=== PATIENT | male | born 1965 | race Caucasian/White ===

== ENCOUNTER 2025-01-25 08:19 | Outpatient (CLI) | payer BC, SELFPAY ==
--- NOTE | ~2025-01-25 | MR_ITS ---
EXAMINATION: MR lumbar spine wo con DATE: 01/25/2025 08:47 INDICATION: Low back pain. Right hip pain. TECHNIQUE: Magnetic resonance imaging (MRI) of the lumbar spine was performed without intravenous con trast. Sequences included sagittal T2-weighted FSE, sagittal T2-weighted FS FSE, sagittal T1-weighted FSE, and axial T2-weighted FSE. COMPARISON: None FINDINGS: There is 4 degrees dextrocurvature of thoracolumbar spine. Vertebral body heights are jermaine l. Intervertebral disc heights are normal. The distal spinal cord signal intensity is normal. The con us medullaris is at L1. The following disc levels are specifically discussed: L1-L2: The disc does not extend beyond the endplate margin. There is mild bilateral facet joint osteo arthritis. There is no neural foraminal stenosis. There is no central canal stenosis. L2-L3: The disc does not extend beyond the endplate margin. There is moderate bilateral facet joint o steoarthritis. There is no neural foraminal stenosis. There is no central canal stenosis. L3-L4: The disc is mildly bulging. There is mild bilateral facet joint osteoarthritis. There is mild bilateral neural foraminal stenosis. There is no central canal stenosis. L4-L5: There is a right foraminal protrusion. There is mild bilateral facet joint osteoarthritis. The re is mild right neural foraminal stenosis. There is no central canal stenosis. L5-S1: There is a right foraminal protrusion. There is mild bilateral facet joint osteoarthritis. The re is mild right neural foraminal stenosis. There is no central canal stenosis. IMPRESSION: 1. Mild lumbar spondylosis. Reviewed, dictated and finalized at location [] ID [email or web address] IMPRESSION: 1. Mild lumbar spondylosis.
== END 2025-01-25 08:20 | disposition home or self-care (01) ==
PROVIDERS: PCP Chiropractor
DX: M47.896 Other spondylosis, lumbar region (principal)
CPT/HCPCS: 72148

== ENCOUNTER 2025-07-06 03:30 | Day surgery (SDC) | payer BC, SELFPAY ==
--- NOTE | 2025-07-04 12:45 | PC.NURSE ---
Report to the Outpatient Waiting Room, entrance under the green pavilion located off [facility], at time _0630_ on date _[id number]_. Planned Procedure Time: _0830_.? Time changes happen often and if your time is changed the preop area will call you the afternoon before. - You and your visitor will be asked to self-screen and do not enter if you have any COVID symptoms. Please call surgeon if you need to reschedule. - A mask is optional within the hospital at this time. Patients may have clear liquids (water, carbonated beverages, clear teas, apple juice) until 3 hours prior to surgery with a maximum of 20 ounces. - No food from midnight until time of surgery and no smoking, or chewing tobacco (or any form of nicotine). No chewing gum, candy or mints. Take only the following medications with a SIP of water on the morning of surgery: ___Metoprolol and Amiodarone____ DO NOT STOP ANY OF YOUR OTHER PRESCRIPTION MEDICATIONS PRIOR TO SURGERY EXCEPT THE FOLLOWING Hold all vitamins and supplements for 3 days per anesthesiologist. Medications to discontinue per physician Patient told not to stop Eliquis, Verified this with Racquel. Date to take last dose Please no make-up, nail dutch, hairspray, perfume, deodorant, or body powder the day of surgery.? No jewelry (including any body piercings) or valuables the day of surgery, leave them at home.? Please take a shower or bath the night before, or the morning of, surgery with an antibacterial soap.? Wear comfortable, loose fitting clothing.? - Jewelry must be removed prior to entering the operating room.? Rings and piercings that are not removed may be cut off. - The hospital will not accept responsibility for valuables.? - Please leave all valuables, including medications, at home the day of surgery. If you are going home after surgery, a licensed otr refrigerated cdl truck driver must drive you home.? - NO public transportation without another adult if you receive anesthesia. - We recommend that an adult stay with you for 24 hours following discharge. - We also recommend that you do not drive, make important decision, drink alcoholic beverages, or take any drugs that were not prescribed by your health care provider for at least 24 hours after your discharge time. Follow any additional instructions given to you from your surgeon. Telephone instructions given to __David__and asked if any additional questions and then verbalized understanding. Patient advised to call surgeon office or pre surgery nurse liaison [phone] if any additional questions.
[2025-07-04 12:54] VITALS: BMI 35.8
[2025-07-06] VITALS (9 sets, daily range): BP systolic 92–124; BP diastolic 53–99; PULSE 74–94; RESP 10–18; TEMP 36.4; O2SAT 92–96; BMI 35.2
--- NOTE | ~2025-07-06 | XR_ITS ---
XR fluoroscopy no charge Indication: Left retrograde pyelogram TECHNIQUE: Fluoroscopy used during Left retrograde pyelogram performed by [Víctor Zamorano MD ] on 07/06/2025. 11 seconds of fluoroscopy time with 3 fluoroscopic images captured. FINDINGS: Correlate with procedure note. IMPRESSION: Fluoroscopy used during Left retrograde pyelogram. Reviewed, dictated and finalized at location A.
--- OUTSIDE RECORDS SUMMARY | 2025-07-06 03:33 | XMS_ITS | Encounter Summary ---
Author Organization 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 Historical Provider Final Res ult documented in this encounter Visit Diagnoses Not on filedocumented in this encounter Care Teams Premium Service Representative Relationship Specialty Start Date End Date Benedicto Tapia MD [address] [place] [id number] PCP - General Family Medicine 04/08/19 01/06/21 Joe Gomez MD [address] [place] [address] PCP - General Allergy and Immunology 01/07/21 documented as of this encounter
--- OUTSIDE RECORDS SUMMARY | 2025-07-06 03:33 | XMS_ITS | Clinical Summary ---
Author Organization [facility] Address [facility] [place] [address] Care Team Providers Care Senior Branch Manager Name Role Phone None, Provider MD Primary Care Provider Unavaila ble Allergies Active Allergy Reactions Criticality Noted Date Comments Aspirin Other (see comment) 07/01/2025 Heart palpitation Medications HYDROcodone-acetami nophen (NORCO) 5-325 MG tabletIndications:A cute Pain < 7 Day Supply Take 1 tablet by mouth every 6 (six) hours as needed. Indications: Acute Pain < 7 Day Supply 10 tablet 5 Active ondansetron (ZOFRAN-ODT) 4 MG disintegrating tablet Take 1 tablet (4 mg total) by mouth every 8 (eight) hours as needed. 20 tablet 5 Active tamsulosin (FLOMAX) 0.4 MG Cap Take 1 capsule (0.4 mg total) by mouth daily. 30 capsule 5 Active Encounters Date Type Department Care Team Description 07/01/2025 10:35 AM CDT - 07/01/2025 2:40 PM CDT Emergency [facility] [place] [address] Darion Maharaj PA-C Urinary Symptoms Discharge Disposition: Home or Self Care (Routine Discharge) 07/01/2025 Travel from Last 3 Months Social History Tobacco Use Types Packs/Day Years Used Date Smoking Tobacco: Some Days Cigarettes Cigars Smokeless Tobacco: Never Tobacco Cessation:Ready to Q uit: Not Asked; Counseling Given: Not Answered Alcohol Use Standard Drinks/Week Comments Not Currently 0 (1 standard drink = 0.6 oz pur e alcohol) Sex and Gender Information Value Date Recorded Sex Assigned at Male 07/01/2025 1:22 PM CDT Legal Sex Male 8:09 PM CDT Gender Identity Not on file Sexual Orientation Not on file Last Filed Vital Signs Vital Sign Reading Time Taken Comments Blood Pressure 135/90 07/01/2025 1:28 PM CDT Pulse 99 07/01/2025 1:28 PM CDT Temperature 36.1 C (97 F) 07/01/2025 10:18 AM CDT Respiratory Rate 18 07/01/2025 1:28 PM CDT Oxygen Saturation 97% 07/01/2025 1:28 PM CDT Inhaled Oxygen Concentration - - Weight 106 kg (233 lb 11 oz) 07/01/2025 10:18 AM CDT Height 172.7 cm (5' 8) 07/01/2025 10:18 AM CDT Body Mass Index 35.53 07/01/2025 10:18 AM CDT Plan of Treatment Health Maintenance Due Date Last Done Comments Colorectal Cancer Screening Colonoscopy (10 Years) 1964 Annual Physical 1967 Hepatitis C 1982 DTaP, Tdap and Td Vaccines ( 1 - Tdap) 1983 Pneumococcal Vaccine: 50+ Ye ars (1 of 2 - PCV) 1983 Zoster Vaccines (1 of 2) 2014 COVID-19 Vaccine (2023-2 5 season) 2024 RSV Immunization or 60+ Years (1 - 1-dose 75+ series) 2039 Meningococcal B Vaccine Aged Out No l onger eligible based on patient's age to complete this topic Meningococcal Vaccine Aged Out No maida berenice eligible based on patient's age to complete this topic RSV Immunizations Under 20 Months Aged Out No longer eligible based on patient's age to complete this topic Procedures Procedure Name Priority Date/Time Associated Diagnosis Comments COMPREHENSIVE METABOLIC PANEL STAT 07/01/2025 1:12 PM CDT CBC W/DIFF AUTOMATED STAT 07/01/2025 1:[address] ABD+PEL WO CON STAT 07/01/2025 12: 10 PM CDT HC URINALYSIS AUTO W/O MICRO STAT 07/01/2025 10:45 AM CDT from Last 3 Months Results * (ABNORMAL) COMPREHENSIVE METABOLIC PANEL (07/01/2025 1:12 PM CDT) GLUCOSE 89 70 - 99 MG/DL 07/01/2025 1:51 PM CDT [facility] BUN 16 7 - 18 MG/DL 07/01/2025 1:51 PM CDT [facility] CREATININE S/P/B 1.13 0.7 - 1.3 MG/DL 07/01/2025 1:51 PM CDT [facility] SODIUM S/P/B 138 136 - 145 MMOL/L 07/01/2025 1:51 PM CDT [facility] POTASSIUM S/P/B 4.2 3.5 - 5.1 MMOL/L 07/01/2025 1:51 PM CDT [facility] CHLORIDE S/P/B 105 97 - 115 MMOL/L 07/01/2025 1:51 PM CDT [facility] CO2 27.7 21 - 32 MMOL/L 07/01/2025 1:51 PM CDT [facility] CALCIUM S/P/B 9.7 8.5 - 10.1 MG/DL 07/01/2025 1:51 PM CDT [facility] BILIRUBIN TOTAL S/P/B 0.9 0.2 - 1.2 MG/DL 07/01/2025 1:51 PM CDT [facility] Comment: THIS ASSAY IS NOT RECOMMENDED FOR PATIENTS UNDERGOING TREATMENT WITH ELTROMBOPAG DUE TO THE POTENTIAL FOR FALSELY ELEVATED RESULTS. TOTAL PROTEIN S/P/B 8.2 6.4 - 8.2 G/DL 07/01/2025 1:51 PM CDT [facility] ALBUMIN S/P/B 3.9 3.4 - 5.0 G/DL 07/01/2025 1:51 PM CDT [facility] AST 26 15 - 37 U/L 07/01/2025 1:51 PM CDT [facility] ALT 37 16 - 60 U/L 07/01/2025 1:51 PM CDT [facility] ALKALINE PHOSPHATASE S/P/B 58 50 - 136 U/L 07/01/2025 1:51 PM CDT [facility] ANION GAP 5.3 2 - 10 MMOL/L 07/01/2025 1:51 PM CDT [facility] BUN CREATININE RATIO 14.2 6 - 26 07/01/2025 1:51 PM CDT [facility] A/G RATIO 0.9(L) 1.0 - 2.0 RATIO 07/01/2025 1:51 PM CDT [facility] GFR ESTIMATE 74(L) >90 ML/MIN/1.7 3 M2 07/01/2025 1:51 PM CDT [facility] Comment: NOTE: eGFR is not calculated for patients <18 years of age or gender unknown. This is an estimated GFR calculation using the new CKD EPI creatinine equation without race and so does not require a correction factor for race. This estimated GFR should not be used for calculating drug doses. 07/01/2025 1:12 PM CDT Darion Maharaj PA-C LABORATORY Final Resul t [facility] [address] [place] [address], [place] [phone] * (ABNORMAL) CBC W/DIFF AUTOMATED (07/01/2025 1:12 PM CDT) WBC 8.51 4.5 - 11.0 x10'3/uL 07/01/2025 1:50 PM CDT [facility] RBC 5.90 4.70 - 6.10 x10'6/uL 07/01/2025 1:50 PM CDT [facility] HGB 18.3(H) 14.0 - 18.0 G/DL 07/01/2025 1:50 PM CDT [facility] HCT 53.8 43.0 - 54.0 % 07/01/2025 1:50 PM CDT [facility] MCV 91.2 80.0 - 94.0 FL 07/01/2025 1:50 PM CDT [facility] MCH 31.0 27.0 - 31.0 PG 07/01/2025 1:50 PM CDT [facility] MCHC 34.0 32.0 - 36.0 G/DL 07/01/2025 1:50 PM CDT [facility] RDW 13.0 11.5 - 14.5 % 07/01/2025 1:50 PM CDT [facility] PLT 258 130 - 400 x10'3/uL 07/01/2025 1:50 PM CDT [facility] MPV 10.9 9.3 - 12.2 FL 07/01/2025 1:50 PM CDT [facility] DIFFERENTIAL TYPE AUTOMATED DIFFERENTIAL 07/01/2025 1:50 PM CDT [facility] NEUTROPHILS % 53.2 % 07/01/2025 1:50 PM CDT [facility] LYMPHOCYTES % 35.1 % 07/01/2025 1:50 PM CDT [facility] MONOCYTES % 10.0 % 07/01/2025 1:50 PM CDT [facility] EOSINOPHILS 0.8 % 07/01/2025 1:50 PM CDT [facility] BASOPHILS 0.8 % 07/01/2025 1:50 PM CDT [facility] IMMATURE GRANS % 0.1 % 07/01/20 25 1:50 PM CDT [facility] ABS. NEUTROPHILS 4.52 1.80 - 7.70 x10'3/uL 07/01/2025 1:50 PM CDT [facility] ABS. LYMPHOCYTES 2.99 1.00 - 4.80 x10'3/uL 07/01/2025 1:50 PM CDT [facility] ABS. MONOCYTES 0.85(H) 0.30 - 0.82 x10'3/uL 07/01/2025 1:50 PM CDT [facility] ABS. EOSINOPHILS 0.07 0.04 - 0.54 x10'3/uL 07/01/2025 1:50 PM CDT [facility] ABS. BASOPHILS 0.07 0.01 - 0.08 x10'3/uL 07/01/2025 1:50 PM CDT [facility] ABS. IMMATURE GRANULOCYTES 0.01 0.00 - 0.49 x10'3/uL 07/01/2025 1:50 PM CDT [facility] 07/01/2025 1:12 PM CDT Darion Maharaj PA-C LABORATORY Final Resul t [facility] [address] [place] [address], [place] [phone] * CT ABD+PEL WO CON (07/01/2025 12:10 PM CDT) Anatomical Region Laterality Modality Abdomen Computed Tomogra phy 07/01/2025 12:1 4 PM CDT Impressions 07/01/2025 12:29 PM CDT IMPRESSION: 1. Moderate left-sided hydronephrosis and hydroureter due to distal left ureteral calculus measuring 5.3 x 8.8 mm. 2. Punctate nonobstructing calculi lower pole left kidney and mid right kidney. 3. Difficult to characterize possible cysts within the superior and inferior right kidney. Follow-up with outpatient renal ultrasound. 4. Colonic diverticuli without diverticulitis. 5. Small fat-containing umbilical hernia. Adjacent small bowel loop without incarceration. 6. Small bilateral fat-containing inguinal hernias. Referred By: Interpreted By: Philip Amos MD, 07/01/2025 12:14 PM Narrative 07/01/2025 12:29 PM CDT [address] [address] EXAMINATION: CT Abdomen and Pelvis without contrast EXAM DATE/TIME: 07/01/2025 11:50 AM REASON FOR EXAM: dysuria, hematuria Symptoms for 3 days COMPARISON: None TECHNIQUE: Axial imaging of the abdomen and pelvis was obtained without intravenous contrast. A dose lowering technique was used for this procedure, which may include, but is not limited to, dose reduction technique, automated exposure control, iterative reconstruction, ALARA (As Low As Reasonably Achievable), or Image Gently techniques. FINDINGS: Abdomen: Moderate left-sided hydronephrosis and hydroureter due to distal left ureteral calculus. Just proximal to the left UVJ.. Measures 5.3 mm in transverse dimension. Cc dimension of 8.8 mm on image 63 of series 5. Punctate nonobstructing calculi lower pole left kidney and mid right kidney. Difficult to characterize possible cyst within the superior and inferior right kidney. Follow-up with outpatient renal ultrasound. Mild edematous appearance to the left kidney with mild perinephric fatty infiltration. Stomach and duodenum are unremarkable. Spleen is unremarkable. Cholecystectomy Pancreas grossly unremarkable. Hepatic parenchyma are within normal limits with no evidence of intrahepatic biliary dilatation or mass within the limitations of a noncontrast study. 2 small to characterize probable cyst within both lobes of the liver. No mesenteric lymphadenopathy or evidence of small bowel obstruction. No free fluid or free air. No evidence of retroperitoneal lymphadenopathy. No evidence of an abdominal aortic aneurysm. Scattered fecal material and gas throughout the colon without evidence of mass or dilatation. Colonic diverticuli without diverticulitis Appendix not inflamed. Small fat-containing umbilical hernia. Adjacent small bowel loop without incarceration. Pelvis: Urinary bladder and rectum are unremarkable.. Small bilateral fat-containing inguinal hernias. On bone windows, no evidence of suspicious skeletal lesion or acute compression fracture deformity. Limited evaluation of the lower thorax demonstrates no acute abnormality. Procedure Note Philip Amos MD - 07/01/2025 [facility] [address] [place], [place] [address] EXAMINATION: CT Abdomen and Pelvis without contrast EXAM DATE/TIME: 07/01/2025 11:50 AM REASON FOR EXAM: dysuria, hematuria Symptoms for 3 days COMPARISON: None TECHNIQUE: Axial imaging of the abdomen and pelvis was obtained withoutintravenous contrast. A dose lowering technique was used for this procedure, which may include,but is not limited to, dose reduction technique, automated exposurecontrol, iterative reconstruction, ALARA (As Low As ReasonablyAchievable), or Image Gently techniques. FINDINGS: Abdomen: Moderate left-sided hydronephrosis and hydroureter due to distalleft ureteral calculus. Just proximal to the left UVJ.. Measures 5.3 mmin transverse dimension. Cc dimension of 8.8 mm on image 63 of series5. Punctate nonobstructing calculi lower pole left kidney and mid rightkidney. Difficult to characterize possible cyst within the superior and inferiorright kidney. Follow-up with outpatient renal ultrasound. Mild edematous appearance to the left kidney with mild perinephric fattyinfiltration. Stomach and duodenum are unremarkable. Spleen is unremarkable. Cholecystectomy Pancreas grossly unremarkable. Hepatic parenchyma are within normal limits with no evidence ofintrahepatic biliary dilatation or mass within the limitations of anoncontrast study. 2 small to characterize probable cyst within bothlobes of the liver. No mesenteric lymphadenopathy or evidence of small bowel obstruction. Nofree fluid or free air. No evidence of retroperitoneal lymphadenopathy. No evidence of an abdominal aortic aneurysm. Scattered fecal material and gas throughout the colon without evidence ofmass or dilatation. Colonic diverticuli without diverticulitis Appendix not inflamed. Small fat-containing umbilical hernia. Adjacent small bowel loop withoutincarceration. Pelvis: Urinary bladder and rectum are unremarkable.. Small bilateralfat- containing inguinal hernias. On bone windows, no evidence of suspicious skeletal lesion or acutecompression fracture deformity. Limited evaluation of the lower thorax demonstrates no acuteabnormality. IMPRESSION: 1. Moderate left-sided hydronephrosis and hydroureter due to distal leftureteral calculus measuring 5.3 x 8.8 mm. 2. Punctate nonobstructing calculi lower pole left kidney and mid rightkidney. 3. Difficult to characterize possible cysts within the superior andinferior right kidney. Follow-up with outpatient renal ultrasound. 4. Colonic diverticuli without diverticulitis. 5. Small fat-containing umbilical hernia. Adjacent small bowel loopwithout incarceration. 6. Small bilateral fat-containing inguinal hernias. Referred By: Interpreted By: Philip Amos MD, 07/01/2025 12:14 PM Darion Maharaj PA-C CT Final Resul t * (ABNORMAL) URINALYSIS (07/01/2025 10:45 AM CDT) SPECIMEN TYPE URINE CLEAN CATCH 07/01/2025 10:49 AM CDT [facility] COLOR (U) YELLOW 07/01/2025 11:17 AM CDT [facility] TRANSPARENCY CLEAR 07/01/2025 11:17 AM CDT [facility] SPECIFIC GRAVITY (U) 1.021 1.001 - 1.030 07/01/2025 11:17 AM CDT [facility] U PH 5.5 5.0 - 9.0 07/01/2025 11:17 AM CDT [facility] LEUKOCYTES (U) NEGATIVE NEGATIVE 07/01/2025 11:17 AM CDT [facility] NITRITES NEGATIVE NEGATIVE 07/01/2025 11:17 AM CDT [facility] PROTEIN RANDOM (U) NEGATIVE <30 MG/DL 07/01/2025 11:17 AM CDT [facility] GLUCOSE (U) NORMAL NORMAL MG/DL 07/01/2025 11:17 AM CDT [facility] KETONES MG/DL (U) NEGATIVE NEGATIVE MG/DL 07/01/2025 11:17 AM CDT [facility] UROBILINOGEN NORMAL NORMAL MG/DL 07/01/2025 11:17 AM CDT [facility] BILIRUBIN (U) NEGATIVE NEGATIVE MG/DL 07/01/2025 11:17 AM CDT [facility] BLOOD (U) 3+(A) NEGATIVE 07/01/2025 11:17 AM CDT [facility] MUCUS RARE /LPF 07/01/2025 11:17 AM CDT [facility] WBC/HPF 3 <6 /HPF 07/01/2025 11:17 AM CDT [facility] RBC/HPF >100(H) <6 /HPF 07/01/2025 11:17 AM CDT [facility] URINE SPECIMEN OBTAINED BY CLEAN CATCH PROCEDURE / Unknown 07/01/2025 10:45 AM CDT Darion Maharaj PA-C URINE ORDERABLES Final Resu lt [facility] [address] [place] [address], from Last 3 Months Insurance [facility] Care Teams Senior Branch Manager Relationship Specialty Start Date End Date None, Provider, MD PCP - General UNKNOWN PHYSICIAN SPECIALTY 07/01/25
--- OUTSIDE RECORDS SUMMARY | 2025-07-06 03:33 | XMS_ITS | Clinical Summary ---
Author Organization [facility] Address [address] [place] [address] Care Team Providers Care Chute Feeder Name Role Phone Joe Gomez MD Primary Care Provider [phone] Allergies Active Allergy Reactions Criticality Noted Date Comments Aspirin Medications multivit-min/iro n/folic acid/K (ADULTS MULTIVITAMIN ORAL) Take 1 tablet by mouth daily Active spironolactone (ALDACTONE) 25 mg tablet TAKE 1 TABLET (25 MG TOTAL) BY MOUTH DAILY 90 tablet 3 2 Active Additional Information Patient not taking.Reported on 05/10/2025 testosterone micronized, bulk, 100 % powder 1 3 Active metoprolol tartrate (LOPRESSOR) 25 mg immediate release tabletIndication s:Atrial Arrhythmia Take 1 tablet (25 mg total) by mouth 3 (three) times a day 90 tablet 3 3 Active Additional Information Patient not taking.Reported on 05/10/2025 albuterol 2.5 mg /3 mL (0.083 %) nebulizer solutionIndicati ons:History of wheezing Take 3 mL (2.5 mg total) by nebulization 4 (four) times a day as needed for wheezing or shortness of breath for up to 7 days 3 mL 5 Active Additional Information Patient not taking.Reported on 05/10/2025 benzonatate (TESSALON) 200 mg capsuleIndicatio ns:Flu-like symptoms Take 1 capsule (200 mg total) by mouth 3 (three) times a day as needed for cough keep tessalon out of reach of children, especially children under the age of 10, due to possible serious risk such as if ingested by children under the age of 10. 30 capsule 5 Active Additional Information Patient not taking.Reported on 05/10/2025 Active Problems Problem Noted Date Diagnosed Date Intermittent atrial fibrillation 05/28/2016 Assessment & Plan (07/08/2021 8:45 AM CDT): Apparently the Norpace is not being managed factor anymore. His atrial fibrillation burden is much less with the change of his job and reduction in the stress level. He can go without trying any medication for the time being. I gave him a prescription for Flecainide 50 mg p.o. b.i.d. as a backup. Atrial fibrillation ablation has been discussed but he has been reluctant. Has been encouraged to lose weight. The EKG today shows normal sinus rhythm, incomplete right bundle branch block, left axis deviation, ST-T changes. Assessment & Plan (01/07/2021 8:48 AM [employer]): Norma. Ablation of the intermittent atrial fibrillation has been discussed and suggested. Has changed his job and the new job is much less stressful. Has lost about 25 lb of weight. On 1 episode of atrial fibrillation in the last 1 year. EKG today shows normal sinus rhythm, left axis deviation, ST-T changes. Compared to a 02/17/2020, the ST-T changes are slightly increased. No chest pain or dyspnea. Will check the serum potassium level. Assessment & Plan (02/17/2020 12:17 PM CDT): Norma. Ablation of the intermittent atrial fibrillation has been suggested. So far , he has not considered it. EKG today shows normal sinus rhythm rate 60, left axis deviation, T-wave changes, QTC 438. Assessment & Plan (04/11/2019 12:00 PM CDT): On Norpace 200 mg p.o. B.i.d. most of the episodes of atrial fibrillation occur at night. Waking him up from sleep. Has been intact with Dr. Hoang was at [facility] . The Norpace CR is very expensive. I told him to find if he can get it from some pharmacy in [place] which may be cheaper. I told him to consider ablation of the atrial fibrillation. But he is reluctant. His brother had serious complication while undergoing the atrial fibrillation ablation. EKG today shows normal sinus rhythm, left axis deviation, notched T-waves. QTC 422. Sleep apnea 05/28/2016 Overview (04/06/2019): On CPAP. Assessment & Plan (07/04/2021 7:50 PM CDT): On CPAP. Assessment & Plan (01/04/2021 12:18 PM [employer]): On CPAP. Assessment & Plan (02/17/2020 7:34 AM CDT): On CPAP. Assessment & Plan (04/08/2019 5:07 PM CDT): On CPAP. Hypertensive heart disease 05/28/2016 Assessment & Plan (07/08/2021 8:43 AM CDT): Salt restriction. Spironolactone. SMA 7 was ordered but not done. Ordered again. Blood pressure 148/84. I retook the blood pressure. 140/80. Assessment & Plan (01/07/2021 8:47 AM [employer]): Salt restriction. Spironolactone. Initial blood pressure 152/82. I retook the blood pressure it was 140/80. Continue the salt restriction and the spironolactone. Will check the SMA 7 in the next few days. Assessment & Plan (02/17/2020 12:16 PM CDT): Blood pressure 160/80. Salt restriction. He was on Aldactone at 1 time which he had discontinued. Restart Aldactone 25 mg p.o. daily. SMA 7 and 4 weeks. Return 6 weeks an will adjust the medication further if necessary. Assessment & Plan (04/11/2019 11:59 AM CDT): Blood pressure 128/84. Continue the current regimen. Continue the salt restriction. Hyperlipidemia 05/28/2016 Overview (04/06/2019): Strong family history for coronary artery disease Assessment & Plan (07/04/2021 7:46 PM CDT): Strong family history for coronary artery disease. Not on a statin at this time, because of the low benefit ratio.. Assessment & Plan (01/04/2021 12:17 PM [employer]): Strong family history for coronary artery disease. Not on a statin so far because of the low benefit ratio. Assessment & Plan (02/17/2020 7:37 AM CDT): Strong family history for coronary artery disease. Not on a statin so far because of the low benefit ratio. Assessment & Plan (04/11/2019 11:59 AM CDT): Has not been on statins because the low benefit ratio.. He does have a strong family history for coronary artery disease. Pre-syncope 05/28/2016 Assessment & Plan (07/04/2021 7:50 PM CDT): No recurrence. Assessment & Plan (01/04/2021 12:18 PM [employer]): No recurrence. Assessment & Plan (02/17/2020 7:34 AM CDT): No recurrence. Assessment & Plan (04/08/2019 5:07 PM CDT): No recurrence. Precordial chest pain 05/28/2016 Overview (04/06/2019): Negative stress echo 06/25/2015. Assessment & Plan (07/04/2021 7:49 PM CDT): Negative stress echo 06/25/2015. Assessment & Plan (01/04/2021 12:18 PM [employer]): Negative stress echo 06/23/2015. Assessment & Plan (02/17/2020 7:35 AM CDT): Negative stress echo 06/23/2015. Assessment & Plan (04/08/2019 5:08 PM CDT): Negative stress echo 06/25/2015. Encounters Date Type Department Care Team Description 05/10/2025 12:45 PM CDT Office Visit [facility] [address] [place] [address] [phone] Sultan Arabella Cleveland MD Intermittent atrial fibrillation (HCC) (Primary Dx) 04/19/2025 Orders Only [facility] [address] [place] [address] [phone] ProviderLuz Maria MD 04/19/2025 Telephone [facility] [address] [place] [phone] Sultan Arabella Cleveland MD DROPOFF (Lab ingrid results) from Last 3 Months Surgical History Surgery Date Site/Laterality Comments APPENDECTOMY 11/30/2000 - 11/29/2001 VASECTOMY 11/30/1989 - 11/29/1990 TONSILLECTOMY 11/30/1982 - 11/29/1983 Medical History Medical History Date Comments Premature beats A-fib (HCC) HLD (hyperlipidemia) PVC's (premature ventricular contractions) Social History Tobacco Use Types Packs/Day Years Used Date Smoking Tobacco: Never Smokeless Tobacco: Never Tobacco Cessation:Counseling Given: No Alcohol Use Standard Drinks/Week Comments Never 0 (1 standard drink = 0.6 oz pur e alcohol) AUDIT-C Answer Date Recorded Q1: How often do you have a drink containing alc ohol? Never 01/07/2021 Average Number of Drinks Not on file 021 Frequency of Binge Drinking Not on file 06/2021 Sex and Gender Information Value Date Recorded Sex Assigned at Not on file Legal Sex Male 12:53 AM [employer] Gender Identity Not on file Sexual Orientation Not on file Obstetrics History Last Filed Vital Signs Vital Sign Reading Time Taken Comments Blood Pressure 132/84 05/10/2025 12:41 PM CDT Pulse 82 05/10/2025 12:41 PM CDT Temperature 37.6 C (99.7 F) 12/27/2024 8:35 AM [employer] Respiratory Rate 18 12/27/2024 8:35 AM [employer] Oxygen Saturation 94% 05/10/2025 12:41 PM CDT Inhaled Oxygen Concentration - - Weight 108.9 kg (240 lb) 05/10/2025 12:41 PM CDT Height 170.2 cm (5' 7.01) 12/27/2024 8:35 AM CS T Body Mass Index 37.58 12/27/2024 8:35 AM [employer] Plan of Treatment Health Maintenance Due Date Last Done Comments Colon Cancer Screening-Colonoscopy 1964 Depression Screening 1964 Hepatitis C Screening 1964 Prostate Cancer Screening-PSA 1964 DTaP/Tdap/Td Vaccine (1 - Tdap) 1975 Hepatitis B Screening 1982 Regular Well Visit/Exam 18-64 1982 Zoster Vaccine (1 of 2) 2014 Influenza Vaccine (#1) 2025 Pneumococcal vaccine <65 Aged Out No longer eligible based on patient's age to complete this topic Procedures Procedure Name Priority Date/Time Associated Diagnosis Comments ECG 12-LEAD Routine 05/10/2025 12:45 PM CDT Intermittent atrial fibrillation (HCC) SCAN - LABS Routine 04/19/2025 4:30 PM CDT SCAN - LABS Routine 04/19/2025 4:29 PM CDT from Last 3 Months Results * ECG 12 lead (05/10/2025 12:45 PM CDT) Sultan Arabella Cleveland MD ECG ORDERABLES Final Result * SCAN - LABS (04/19/2025 4:30 PM CDT) Historical Provider Final Res ult * SCAN - LABS (04/19/2025 4:29 PM CDT) Historical Provider Final Res ult from Last 3 Months Insurance Megathread ACCESS OOS Megathread ACCESS OOS Care Teams Chute Feeder Relationship Specialty Start Date End Date Joe Gomez MD [address] [place] [address] PCP - General Allergy and Immunology 01/07/21
--- OUTSIDE RECORDS SUMMARY | 2025-07-06 03:33 | XMS_ITS | Clinical Summary ---
Author Organization [facility] Address [address] [facility] [place] [address] Phone Care Team Providers Care And Drying Supervisor Cooking Casing Name Role Phone Unavailable Primary Care Provider Unavailabl e Allergies Active Allergy Reactions Criticality Noted Date Comments Aspirin Palpitations Low 05/16/2025 Medications spironolactone (ALDACTONE) 25 mg tablet Take 25 mg by mouth daily. 06/25/2022 Active testosterone micronized, bulk, 100 % Powder 08/27/2023 Active metoprolol tartrate (LOPRESSOR) 25 mg tablet Take 1 Tablet (25 mg) by mouth daily. 90 Tablet 2 05/16/2025 Active apixaban (ELIQUIS) 5 mg tablet Take 1 Tablet (5 mg) by mouth 2 times daily. 60 Tablet 2 05/16/2025 Active losartan (COZAAR) 25 mg tablet Take 1 Tablet (25 mg) by mouth daily. 100 Tablet 3 06/05/2025 Active dapagliflozin propanediol (Farxiga) 10 mg Tablet Take 1 Tablet (10 mg) by mouth daily. 90 Tablet 3 06/06/2025 Active amiodarone (CORDARONE) 200 mg tabletIndications :Paroxysmal atrial fibrillation (CMS/HCC) Take 1 Tablet (200 mg) by mouth 2 times daily for 14 days, THEN 1 Tablet (200 mg) daily. 118 Tablet 06/07/2025 09/19/20 25 Active atorvastatin (LIPITOR) 10 mg tablet Take 1 Tablet (10 mg) by mouth daily at bedtime. 90 Tablet 2 06/16/2025 Active Active Problems Problem Noted Date Diagnosed Date Diastolic dysfunction 05/17/2025 Paroxysmal atrial fibrillation 05/16/2025 Benign hypertension 05/16/2025 Encounters Date Type Department Care Team Description 06/29/2025 Results Follow-Up [facility]ART AND VASCULAR EP AT [address] [place] [phone] Klarissa Cook, KEYLA ECHO TRANSESOPHAGEAL WITH CARDIOVERSION 06/28/2025 9:20 AM CDT Anesthesia Event [facility] Non Invasive Cardiology [address] [place] [phone] Greg Luque MD 06/28/2025 7:50 AM CDT - 06/28/2025 11:59 PM CDT Hospital Encounter [facility] Non Invasive Cardiology [address] [place] [phone] Nelly Cortez MD Forstot, Robert M, MD Discharge Disposition: Home or Self Care 06/26/2025 Telephone [facility] EP AT [address] [place] [phone] Nelly Cortez MD CV/SR/beth 06/16/2025 8:00 AM CDT - 06/16/2025 8:46 AM CDT Surgery [facility] Train Inspector [address] [place] [phone] Víctor Fernandez MD Left heart cath 06/16/2025 6:00 AM CDT - 06/16/2025 11:40 AM CDT Hospital Encounter [facility] Interventional Care [address] [place] [phone] Víctor Fernandez MD Decreased cardiac ejection fraction Discharge Disposition: Home or Self Care 06/16/2025 Telephone [facility] EP AT [address] [place] [phone] Nelly Cortez MD scheduling CV 06/14/2025 Results Follow-Up [facility] Heart and Vascular At [address] [place] [phone] Jo-Ann Hitchcock, RN CBC WITH DIFFERENTIAL, BASIC METABOLIC PANEL, PROTIME-INR 06/07/2025 9:00 AM CDT Office Visit [facility] EP AT [address] [place] [address] Víctor Fernandez MD Nordsieck, Eric James, MD Paroxysmal atrial fibrillation (CMS/HCC) (Primary Dx); Chronic systolic heart failure (CMS/HCC); Essential hypertension 06/07/2025 Telephone [facility] EP AT [address] [place] [address] Nelly Cortez MD Confirmed ablation date 06/06/2025 Telephone [facility] Heart [facility] Vascular At [address] [place] [phone] Víctor Fernandez MD PA 06/06/2025 Refill [facility] Vascular At [address] [place] [address] Víctor Fernandez MD 06/05/2025 Refill [facility] Heart [facility] Vascular At [address] [place] [address] Víctor Fernandez MD 05/30/2025 Prep for Surgery [facility] Vascular At [address] [place] [address] Víctor Fernandez MD Decreased cardiac ejection fraction (Primary Dx); Abnormal echocardiogram; Palpitations; Dyspnea, unspecified type 05/25/2025 7:57 AM CDT Anesthesia Event [facility] Non Invasive Cardiology [address] [place] [phone] Jeffy Carranza DO 05/25/2025 7:05 AM CDT - 05/25/2025 11:59 PM CDT Hospital Encounter [facility] Non Invasive Cardiology [address] [place] [phone] Víctor Fernandez MD Landolt, Luke Philip, DO Discharge Disposition: Home or Self Care 05/23/2025 External Device Data STL ABSTRACTION Provider, Abstract 05/23/2025 External Device Data STL ABSTRACTION Provider, Abstract 05/23/2025 External Device Data STL ABSTRACTION Provider, Abstract 05/23/2025 Results Follow-Up [facility] Heart [facility] Vascular At [address] [place] [address] Mary Jo Alas RN BASIC METABOLIC PANEL, ECHO TRANSESOPHAGEAL WITH CARDIOVERSION 05/16/2025 2:00 PM CDT Office Visit [facility] Heart [facility] Vascular At [address] [place] [address] Víctor Fernandez MD Paroxysmal atrial fibrillation (CMS/HCC) (Primary Dx); Benign hypertension; Diastolic dysfunction 05/16/2025 Telephone [facility] Heart [facility] Vascular At [address] [place] [address] Víctor Fernandez MD needs evgeny cv from Last 3 Months Family History Medical History Relation Name Comments Heart Disease Father Stroke Maternal Grandfather Relation Name Status Comments Father Maternal Grandfather Social History Tobacco Use Types Packs/Day Years Used Date Smoking Tobacco: Never Smokeless Tobacco: Never Tobacco Cessation:Counseling Given: Not Answered Alcohol Use Standard Drinks/Week Comments Not Currently 0 (1 standard drink = 0.6 oz pur e alcohol) Sex and Gender Information Value Date Recorded Sex Assigned at Male 05/09/2025 2:54 PM CDT Legal Sex Male 4:21 PM CDT Gender Identity Male 05/09/2025 2:54 PM CDT Sexual Orientation Straight 05/09/2025 2: 54 PM CDT Last Filed Vital Signs Vital Sign Reading Time Taken Comments Blood Pressure 129/67 06/28/2025 10:18 AM CDT Pulse 82 06/16/2025 11:00 AM CDT Temperature 36.9 C (98.4 F) 06/16/2025 7:08 AM CDT Respiratory Rate 12 06/28/2025 10:18 AM CDT Oxygen Saturation 95% 06/28/2025 10:18 AM CDT Inhaled Oxygen Concentration - - Weight 109.3 kg (241 lb) 06/16/2025 7:08 AM CDT Height 172.7 cm (5' 8) 06/16/2025 7:08 AM CDT Body Mass Index 36.64 06/16/2025 7:08 AM CDT Plan of Treatment Upcoming Encounters Date Type Department Care Team (Late st Contact Info) Description 08/07/2025 11:15 AM CDT Office Visit [facility] EP AT [address] [place] [address] Dalila Salas NP [address] [place] [address] [address] [place] [phone] 10/16/2025 8:00 AM SUPPLIER DEVELOPMENT MANAGER Office Visit [facility] EP AT [address] [place] [address] Dalila Salas NP [address] [place] [address] [address] [place] [address] 11/16/2025 11:30 AM SUPPLIER DEVELOPMENT MANAGER Office Visit [facility] Heart and Vascular At [address] [place] [address] Víctor Fernandez MD [address] [place] [address] [address] [place] [address] Health Maintenance Due Date Last Done Comments Pre-Diabetes and Diabetes Screening 1965 DTAP/TDAP/TD VACCINES (1 - Tdap) 1983 COLORECTAL SCREENING 2009 Colorectal Cancer Screening 2009 FIT-DNA Q 3 years 2009 FIT/FOBT Q 1 year 2009 Flex Sig/CT Colonography Q 5 years 2009 ZOSTER VACCINE (1 of 2) 2014 RSV VACCINE (60+ or ) (1 - Risk 60-74 years 1-dose series) 2024 INFLUENZA VACCINE (#1) 2025 HEPATITIS B VACCINES Aged Out No long er eligible based on patient's age to complete this topic Procedures Procedure Name Priority Date/Time Associated Diagnosis Comments ECHO TRANSESOPHAGEAL WITH CARDIOVERSION Routine 06/28/2025 10:01 AM CDT Paroxysmal atrial fibrillation (CMS/HCC) EKG 12-LEAD Routine 06/28/2025 9:42 AM CDT TELEMETRY REPORT 06/19/2025 1:30 PM CDT TELEMETRY REPORT 06/19/2025 11:1 2 AM CDT LEFT HEART CATH Routine 06/16/2025 8:43 AM CDT Decreased cardiac ejection fraction Dyspnea, unspecified type Abnormal echocardiogram Palpitations PROTIME-INR Routine 06/13/2025 8:34 AM CDT Preop testing Abnormal coagulation profile Abnormal laboratory test BASIC METABOLIC PANEL Routine 06/13/2025 8:34 AM CDT Preop testing Abnormal coagulation profile Abnormal laboratory test CBC WITH DIFFERENTIAL Routine 06/13/2025 8:34 AM CDT Preop testing Abnormal coagulation profile Abnormal laboratory test ECHO TRANSESOPHAGEAL WITH CARDIOVERSION Routine 05/25/2025 9:12 AM CDT Paroxysmal atrial fibrillation (CMS/HCC) EKG 12-LEAD Routine 05/25/2025 8:32 AM CDT BASIC METABOLIC PANEL Routine 05/22/2025 7:50 AM CDT Paroxysmal atrial fibrillation (CMS/HCC) PA ECG ROUTINE ECG W/LEAST 12 LDS W/I&R Routine 05/16/2025 2:51 PM CDT Paroxysmal atrial fibrillation (CMS/HCC) from Last 3 Months Results * ECHO TRANSESOPHAGEAL WITH CARDIOVERSION (06/28/2025 10:01 AM CDT) Only the most recent of2 resultswithin the time period is included. EJECTION FRACTION 53 INTERFACE SYSTEM 06/28/2025 9:17 AM CDT Narrative INTERFACE SYSTEM - 06/28/2025 10:12 AM CDT [address] [place] [address] [email or web address] Transesophageal Echocardiogram with Cardioversion Patient: Rashad Ramos Study ID: ECHO QIANA Gender: M : 1965 Age: 59 Race: RIGO Height 172.7cm Study Date: 06/28/2025 Weight: 109.3kg Access. #: [id number] BP: *Referring Physician:* Nelly Cortez Eric James *Ordering Physician:* Nelly Cortez equipment processor: Nurse: Indications: Atrial fibrillation. STUDY CONCLUSIONS: SUMMARY: - Left ventricle: The cavity size was normal. Wall thickness was normal. Limited 2D echocardiographic imaging, obtained post cardioversion, revealed normal wall motion with low normal systolic function, EF 50-55%. For Epic reporting: the left ventricular ejection fraction is 53% . - Right ventricle: The cavity size is normal. Systolic function is normal. - Left atrium: The atrium is dilated. No evidence of thrombus in the atrium or atrial appendage. Normal left atrial emptying velocities. - Mitral valve: Mild regurgitation. - Tricuspid valve: Mild regurgitation. - Pulmonic valve: Mild regurgitation. - Successful DC cardioversion to sinus rhythm with a single, synchronized, 300J biphasic shock. Cardiac Anatomy: LEFT VENTRICLE: The cavity size was normal. Wall thickness was normal. Limited 2D echocardiographic imaging, obtained post cardioversion, revealed normal wall motion with low normal systolic function, EF 50-55%. For Epic reporting: the left ventricular ejection fraction is 53% . AORTIC VALVE: Structurally normal valve. Trileaflet. No significant regurgitation. AORTA: The aorta was normal. MITRAL VALVE: Structurally normal valve. Mild regurgitation. LEFT ATRIUM: The atrium is dilated. No evidence of thrombus in the atrium or atrial appendage. Normal left atrial emptying velocities. ATRIAL SEPTUM: The septum is normal. The interatrial septum was hypermobile. Color Doppler shows no nrzk-aj-ymukn atrial level shunt. RIGHT VENTRICLE: The cavity size is normal. Systolic function is normal. PULMONIC VALVE: The valve appears to be grossly normal. Mild regurgitation. TRICUSPID VALVE: Structurally normal valve. Mild regurgitation. RIGHT ATRIUM: The atrium was normal in size. PERICARDIUM: There is no pericardial effusion. Measurements Left ventricle Value Ref IVS, ED, LAX (N) 1.0 cm 0.6 - 1.0 SERA, LAX (N) 4.2 cm 4.2 - 5.8 SERA/bsa, LAX (L) 1.9 cm/m^2 2.2 - 3.0 SERA, LAX chord (N) 5.6 cm 4.2 - 5.8 ESD, LAX chord (H) 4.2 cm 2.5 - 4.0 SERA/bsa, LAX chord (N) 2.6 cm/m^2 2.2 - 3.0 ESD/bsa, LAX chord (N) 1.9 cm/m^2 1.3 - 2.1 FS, LAX chord (N) 25 % 25 - 43 IVS, ED (N) 1.0 cm 0.6 - 1.0 PW, ED (H) 1.2 cm 0.6 - 1.0 EDV, 2-p (N) 131 ml 62 - 150 ESV, 2-p (H) 65 ml 21 - 61 EF, 2-p (L) 51 % 52 - 72 SV, 2-p 67 ml --------- SV/bsa, 2-p 30.1 ml/m^2 --------- Legend: (L) and (H) ibeth values outside specified reference range. (N) meraz values inside specified reference range. Procedure data: Procedure information: The patient arrived at the laboratory in a fasting state. A baseline ECG was recorded. Intravenous access was obtained. Surface ECG leads and pulse oximetric signals were monitored. Self-adhesive anterior-posterior defibrillation pads were applied. Consicous sedation was administered during cardioversion by anesthesiology staff. A transesophageal echocardiogram was performed. Topical anesthesia was obtained using viscous lidocaine. A transesophageal probe was insertedby the attending cardiologistwithout difficulty. Study completion: There were no complications. Administered medications: Propofol. Transesophageal echocardiogram with cardioversion. 2D, complete spectral Doppler, and color Doppler. Birthdate: Patient birthdate: 1965. Age: Patient is 59year(s) old. Sex: gender: male. Height: 172.7cm. 68in. Weight: 109.3kg. 241lb. Body mass index: 36.7kg/m^2. Body surface area: 2.21m^2. Study date: Study date: 06/28/2025. Study time: 09:17 AM. Prepared and Electronically Authenticated Diana Stewart [id number] Procedure Note Diana Stewart MD - 06/28/2025 [place] [address] [email or web address] Transesophageal Echocardiogram with Cardioversion Patient: Rashad Ramos Study ID: ECHO QIANA Gender: M : 1965 Age: 59 Race: [facility] Height 172.7cm Study Date: 06/28/2025 Weight: 109.3kg Access. #: [id number] BP: *Referring Physician:Nelly Flwoer Eric James *Ordering Physician:Nelly Flower equipment processor: Nurse: Indications: Atrial fibrillation. STUDY CONCLUSIONS: SUMMARY: - Left ventricle: The cavity size was normal. Wall thickness was normal. Limited 2D echocardiographic imaging, obtained post cardioversion,revealed normal wall motion with low normal systolic function, EF 50-55%. ForEpic reporting: the left ventricular ejection fraction is 53% . - Right ventricle: The cavity size is normal. Systolic function isnormal. - Left atrium: The atrium is dilated. No evidence of thrombus in theatrium or atrial appendage. Normal left atrial emptying velocities. - Mitral valve: Mild regurgitation. - Tricuspid valve: Mild regurgitation. - Pulmonic valve: Mild regurgitation. - Successful DC cardioversion to sinus rhythm with a single,synchronized, 300J biphasic shock. Cardiac Anatomy: LEFT VENTRICLE: The cavity size was normal. Wall thickness was normal. Limited 2D echocardiographic imaging, obtained post cardioversion,revealed normal wall motion with low normal systolic function, EF 50-55%. ForEpic reporting: the left ventricular ejection fraction is 53% . AORTIC VALVE: Structurally normal valve. Trileaflet. No significant regurgitation. AORTA: The aorta was normal. MITRAL VALVE: Structurally normal valve. Mild regurgitation. LEFT ATRIUM: The atrium is dilated. No evidence of thrombus in theatrium or atrial appendage. Normal left atrial emptying velocities. ATRIAL SEPTUM: The septum is normal. The interatrial septum washypermobile. Color Doppler shows no zezc-oe-flapg atrial level shunt. RIGHT VENTRICLE: The cavity size is normal. Systolic function isnormal. PULMONIC VALVE: The valve appears to be grossly normal. Mild regurgitation. TRICUSPID VALVE: Structurally normal valve. Mild regurgitation. RIGHT ATRIUM: The atrium was normal in size. PERICARDIUM: There is no pericardial effusion. Measurements Left ventricle Value Ref IVS, ED, LAX (N) 1.0 cm 0.6 - 1.0 SERA, LAX (N) 4.2 cm 4.2 - 5.8 SERA/bsa, LAX (L) 1.9 cm/m^2 2.2 - 3.0 SERA, LAX chord (N) 5.6 cm 4.2 - 5.8 ESD, LAX chord (H) 4.2 cm 2.5 - 4.0 SERA/bsa, LAX chord (N) 2.6 cm/m^2 2.2 - 3.0 ESD/bsa, LAX chord (N) 1.9 cm/m^2 1.3 - 2.1 FS, LAX chord (N) 25 % 25 - 43 IVS, ED (N) 1.0 cm 0.6 - 1.0 PW, ED (H) 1.2 cm 0.6 - 1.0 EDV, 2-p (N) 131 ml 62 - 150 ESV, 2-p (H) 65 ml 21 - 61 EF, 2-p (L) 51 % 52 - 72 SV, 2-p 67 ml --------- SV/bsa, 2-p 30.1 ml/m^2 --------- Legend: (L) and (H) ibeth values outside specified reference range. (N) meraz values inside specified reference range. Procedure data: Procedure information: The patient arrived at the laboratory in afasting state. A baseline ECG was recorded. Intravenous access was obtained.Surface ECG leads and pulse oximetric signals were monitored. Self-adhesive anterior-posterior defibrillation pads were applied. Consicous sedationwas administered during cardioversion by anesthesiology staff. Atransesophageal echocardiogram was performed. Topical anesthesia was obtained usingviscous lidocaine. A transesophageal probe was insertedby the attending cardiologistwithout difficulty. Study completion: There were no complications. Administered medications: Propofol.Transesophageal echocardiogram with cardioversion. 2D, complete spectral Doppler, andcolor Doppler. Birthdate: Patient birthdate: 1965. Age: Patient is 59year(s) old. Sex: gender: male. Height: 172.7cm. 68in.Weight: 109.3kg. 241lb. Body mass index: 36.7kg/m^2. Body surface area:2.21m^2. Study date: Study date: 06/28/2025. Study time: 09:17 AM. Preparedand Electronically Authenticated Diana Stewart [id number] us Nelly Cortez MD US ORDERABLES Final Re sult INTERFACE SYSTEM Refer to clinic/hospital department * EKG 12-LEAD (06/28/2025 9:42 AM CDT) Only the most recent of3 resultswithin the time period is included. 06/28/2025 9:42 AM CDT Narrative INTERFACE SYSTEM - 06/28/2025 10:02 AM CDT [address] [place] [address] Test Date: 2025-06-28 Pat Name: RASHAD RAMOS Department: 41 Room: Gender: Male Jumpbasting Lining Baster: [facility] : 1965 Requested By: NELLY RIVERA Order Number: [id number] Reading MD: Diana Stewart Measurements Intervals [place] Rate: 62 P: -4 PA: 151 QRS: -68 QRSD: 105 T: -24 QT: 475 QTc: 483 Interpretive Statements Sinus rhythm Left anterior fascicular block Abnormal R wave progression, consider old anterior infarct T wave abnormality in anterior leads, consider ischemia Electronically Signed On 06-28-2025 10:02:14 CDT by Diana Stewart Procedure Note Diana Stewart MD - 06/28/2025 [address] [place] [address] Test Date: 2025-06-28 Pat Name: RASHAD RAMOS Department: 41 Room: Gender: Male Jumpbasting Lining Baster: Pat : 1965 Requested By: NELLY RIVERA Order Number: [id number] Reading MD: Diana Stewart Measurements Intervals [place] Rate: 62 P: -4 PA: 151 QRS: -68 QRSD: 105 T: -24 QT: 475 QTc: 483 Interpretive Statements Sinus rhythm Left anterior fascicular block Abnormal R wave progression, consider old anterior infarct T wave abnormality in anterior leads, consider ischemia Electronically Signed On 06-28-2025 10:02:14 CDT by Diana Stewart us Diana Stewart MD ECG ORDERABLES Final Result INTERFACE SYSTEM Refer to clinic/hospital department * TELEMETRY REPORT (06/19/2025 1:30 PM CDT) Only the most recent of2 resultswithin the time period is included. us Provider Scanning ECG ORDERABLES Final Result * LEFT HEART CATH (06/16/2025 8:43 AM CDT) 06/16/2025 7:36 AM CDT Narrative [facility] - 06/16/2025 8:50 AM CDT Impression: 1. Non obstructive coronary artery disease 2. Normal LV filling pressure 3. No significant aortic valve gradient Plan: 1. Begin removing air from radial band on arrival from receiver/laborer as per protocol, max band time 45 minutes if no bleeding. 2. Medical therapy for CAD, LV dysfunction 3. Discharge today Procedure Details CARDIAC CATHETERIZATION FINAL REPORT Date of Procedure: 06/16/2025 Diet Consultant: Víctor Fernandez MD Access: right radial artery Procedure(s): 1. Selective coronary angiography 2. Conscious sedation monitoring 3. Left heart catheterization Indication: LV dysfunction Brief Clinical history: Rashad Ramos is a 59 y.o. male with a history of LV dysfunction EF 40% who presents for cardiac catheterization. Procedural Details: After obtaining written informed consent, the patient was draped and prepped in the usual sterile manner. Conscious sedation was administered. 1. Access: Local anesthetic was given and access was obtained in the right radial artery using a micropuncture technique and a 6F Terumo sheath was placed without difficulty. 3000u of IV heparin was administered. 2. Diagnostic: 5F JR 4 diagostic and 6F XB 3 guide catheters were used to perform selective right and left coronary angiography, respectively. A 5F JR 4 diagnostic catheter was used for left heart catheterization. All catheters were introduced and removed over a .035 J wire. 3. Hemostasis: The arterial sheath was removed and a hemoband placed over the arteriotomy site and filled with air to maintain patent hemostasis. Burton Findings: 1. Hemodynamics A. Opening arterial pressure: 120/60 mmHg B. LVEDP: 5 mmHg C. Aortic valve: no significant gradient 2. Coronary anatomy A. Left Main artery: The left main artery bifurcates into the left anterior descending artery and left circumflex artery. The left main artery has no significant disease B. Left anterior descending artery: Transapical vessel which gives rise to 2 diagonal arteries. The left anterior descending artery has no significant disease. The diagonal arteries have no significant disease C. Left circumflex artery: non-dominant and gives rise to 2 obtuse marginal arteries. The left circumflex has no significant disease. The obtuse marginal arteries have no significant disease D. Right coronary artery: dominant and gives rise to the posterior descending artery and posterolateral branch. The right coronary artery has no significant disease. The posterior descending artery has no significant disease. The PLB has no significant disease No Intervention performed Complications: none Impression: 1. Non obstructive coronary artery disease 2. Normal LV filling pressure 3. No significant aortic valve gradient Plan: 1. Begin removing air from radial band on arrival from receiver/laborer as per protocol, max band time 45 minutes if no bleeding. 2. Medical therapy for CAD, LV dysfunction 3. Discharge today 06/16/2025 8:48 AM Víctor Fernandez MD us Víctor Fernandez MD CUP CATH ORDERABLES Final R esult [facility] CLNE# [id number] [address] [place] [address] * (ABNORMAL) CBC WITH DIFFERENTIAL (06/13/2025 8:34 AM CDT) [facility] WBC 6.0 3.8 - 10.8 Thousand/u L [facility] RBC 5.43 4.20 - 5.80 Million/uL [facility] HEMOGLOBIN 17.1 13.2 - 17.1 g/dL [facility] HEMATOCRIT 52.8(H) 38.5 - 50.0 % [facility] MCV 97.2 80.0 - 100.0 fL [facility] MCH 31.5 27.0 - 33.0 pg [facility] MCHC 32.4 32.0 - 36.0 g/dL [facility] Comment: For adults, a slight decrease in the calculated MCHC value (in the range of 30 to 32 g/dL) is most likely not clinically significant; however, it should be interpreted with caution in correlation with other red cell parameters and the patient's clinical condition. RDW 12.8 11.0 - 15.0 % [facility] PLATELETS 251 140 - 400 Thousand/u L [facility] MPV 11.1 7.5 - 12.5 fL [facility] NEUTROPHIL ABSOLUTE 3,078 1,500 - 7,800 cells/uL [facility] LYMPHOCYTE ABSOLUTE 2,214 850 - 3,900 cells/uL [facility] MONOCYTE ABSOLUTE 564 200 - 950 cells/uL [facility] EOSINOPHIL ABSOLUTE 72 15 - 500 cells/uL [facility] BASOPHILS ABSOLUTE 72 0 - 200 cells/uL [facility] NEUTROPHIL 51.3 % [facility] LYMPHOCYTES 36.9 % [facility] MONOCYTE 9.4 % [facility] EOSINOPHILS 1.2 % [facility] BASOPHILS 1.2 % [facility] Comment: FASTING:NO FASTING: NO Test Performed at: [facility] [address] [place] [address] Virgilio Dougherty MD Blood 06/13/2025 8:34 AM CDT 06/13/2025 8:34 AM CDT Víctor Fernandez MD HEMATOLOGY ORDERABLES Final Result Performing Organization Address City/State/ZIP [facility] Phone Number [facility] [phone] [facility] [address] [address] [place] [address] * PROTIME-INR (06/13/2025 8:34 AM CDT) INR 1.1 [facility] Comment: Reference Range 0.9-1.1 Moderate-intensity Warfarin Therapy 2.0-3.0 Higher-intensity Warfarin Therapy 3.0-4.0 PROTIME 11.5 9.0 - 11.5 sec [facility] Comment: For additional information, please refer to http://education.[employer]faq/SIT550 (This link is being provided for informational/ educational purposes only.) FASTING:NO FASTING: NO Test Performed at: [facility] [place] [address] [place] [address] KarolineKim Mccain Blood 06/13/2025 8:34 AM CDT 06/13/2025 8:34 AM CDT Víctor Fernandez MD HEMATOLOGY ORDERABLES Final Result Performing Organization Address City/State/ZIP [facility] Phone Number [facility] [phone] [place] [address] [address] [place] [address] * BASIC METABOLIC PANEL (06/13/2025 8:34 AM CDT) Only the most recent of2 resultswithin the time period is included. GLUCOSE 106 65 - 139 mg/dL [facility] Comment: Non-fasting reference interval BUN 15 7 - 25 mg/dL [facility] CREATININE 1.00 0.70 - 1.35 mg/dL [facility] GFR 86 > OR = 60 mL/min/1.7 3m2 [facility] BUN/CREAT RATIO SEE NOTE: (calc) [facility] Comment: Not Reported: BUN and Creatinine are within reference range. SODIUM 141 135 - 146 mmol/L [facility] POTASSIUM 4.5 3.5 - 5.3 mmol/L [facility] CHLORIDE 103 98 - 110 mmol/L [facility] CO2 32 20 - 32 mmol/L [facility] CALCIUM 9.4 8.6 - 10.3 mg/dL [facility] Comment: FASTING:NO FASTING: NO Test Performed at: [facility] [address] [place] [address] Virgilio Dougherty MD Blood 06/13/2025 8:34 AM CDT 06/13/2025 8:34 AM CDT Víctor Fernandez MD CHEMISTRY ORDERABLES Final Result [facility] [phone] [facility] [address] [address] from Last 3 Months Insurance [facility] BLUE ACCESS/TRUE BLUE PPO Advance Directives For more information, please contact: [phone] * Full Code (Latest Code Status on File) Date Activated Date Inactivated Comments 06/16/2025 6:37 AM 06/16/2025 1:45 PM
--- OUTSIDE RECORDS SUMMARY | 2025-07-06 03:33 | XMS_ITS | Continuity of Care Document ---
Author Organization [employer] Address [address] [place] [address] Phone Care Team Providers Care Soa Integration Developer Name Role Phone Justin Peñaloza PT Unavailable Unavailable Procedures Procedure Date Manual Therapy Therapeutic Exercise Manual Therapy Therapeutic Exercise Manual Therapy Therapeutic Exercise Manual Therapy Therapeutic Exercise Manual Therapy Therapeutic Exercise Manual Therapy Therapeutic Exercise Therapeutic Exercise Manual Therapy Manual Therapy Therapeutic Exercise Manual Therapy Therapeutic Exercise PT Evaluation Advance Directives Directive Yes / No Effective Date File Name No Information Encounters Encounter Description Practice Location Reason(s) For Visit Diagnoses Date Provider Providers Copied on Encounter [employer], [address], [place], [place], [id number], tel:[phone] [facility] 59 No Information Sep-2 3-201 6 Jh Anderson. , [place]. Referring Provider: Mansoor Robles, [address], [place], [address]. tel:[phone] [employer], [address], [place], [place], [id number], tel:[phone] [facility] 59 No Information Sep-2 0-201 6 Jhdavid Anderson. , [place]. Referring Provider: Mansoor Robles, [address], [place], [address]. tel:[phone] [facility] [facility], [address], [place], [place], [id number], [place] tel:[phone] [facility] [address] No Information Sep-1 5-201 6 Jh Justin. , [place]. Referring Provider: Mansoor Robles, [address], [place], [address]. tel:[phone] [employer] [facility], [address] [facility] [facility] [address], [place], [place], [id number], [place] tel:[phone] [facility] [address] No Information Sep-1 3-201 6 Jh Justin. , [place]. Referring Provider: Mansoor Robles, [address], [place], [address]. tel:[phone] [employer] [facility], [address] [address], [place], [place], [id number], [place] tel:[phone] [facility] 59 No Information Sep-1 0-201 6 Jh Justin. , [place]. Referring Provider: Mansoor Robles, [address], [place], [address]. tel:[phone] [employer] [facility], [address] [address], [place], [place], [address], [place] tel:[phone] [place] 59 No Information Sep-0 6-201 6 Jh Justin. , [place]. Referring Provider: Mansoor Robles, [address], [place], [address]. tel:[phone] [facility], [address] [facility] [address] [facility] [address], [place], [place], [id number], [place] tel:[phone] [facility] [address] No Information Sep-0 2-201 6 Jh Justin. , [place]. Referring Provider: Mansoor Robles, [address], [place], [address]. tel:[phone] [facility], [address] [facility] [facility] [address], [place], [place], [id number], [place] tel:[phone] [facility] 59 No Information 6 Jh Anderson. , [place]. Referring Provider: Mansoor Robles, [address], [place], [address]. tel:[phone] [employer], [id number], [place] tel:[phone] [facility] 59 Cervical radiculopathyMuscl e weaknessNeck pain 6 Jh Anderson. , [place]. Referring Provider: Mansoor Robles, [address], [place], [address]. tel:[phone] Family History Family Member Type Diagnosis Age At Onset No Information Payers Payer name Insurance type Covered green party ID Rupinder shearer(s) [facility] [id number] Social History Type Description Quantity Date Captured Comments Sex Male Smoking Status No Information Chief Complaint And Reason For Visit No Information Reason For Referral Reason For Referral No Information History Of Present Illness Encounter Date Complaint History Of Prese nt Illness No Information Functional Status Date Functional Assessmen t No Information Instructions Date Instruction Additional Infor mation No Information Assessments Type Assessment Date No Information Patient Care Teams Name Effective Dates (start - stop) Status Members No Information
--- OUTSIDE RECORDS SUMMARY | 2025-07-06 03:33 | XMS_ITS | Encounter Summary ---
Author Organization [facility] Address [address] [place] [address] Care Team Providers Care Reed Dipper Name Role Phone Unavailable Primary Care Provider Unavailabl e Encounter Details Date Type Department Care Team (Latest Contact Info) Description 06/29/2025 Results Follow-Up [facility] EP AT [address] [place] [phone] Klarissa Cook RN ECHO TRANSESOPHAGEAL WITH CARDIOVERSION Social History Tobacco Use Types Packs/Day Years Used Date Smoking Tobacco: Never Smokeless Tobacco: Never Alcohol Use Standard Drinks/Week Comments Not Currently 0 (1 standard drink = 0.6 oz pur e alcohol) Sex and Gender Information Value Date Recorded Sex Assigned at Male 05/09/2025 2:54 PM CDT Legal Sex Male 4:21 PM CDT Gender Identity Male 05/09/2025 2:54 PM CDT Sexual Orientation Straight 05/09/2025 2: 54 PM CDT documented as of this encounter Plan of Treatment Upcoming Encounters Date Type Department Care Team (Late st Contact Info) Description 08/07/2025 11:15 AM CDT Office Visit [facility] AT [address] [place] [phone] Dalila Salas NP [address] [place] [address] [address] [place] [address] 10/16/2025 8:00 AM SUPPLY CHAIN VICE PRESIDENT Office Visit [facility] AT [address] [place] [address] Dalila Salas NP [address] [place] [address] 11/16/2025 11:30 AM SUPPLY CHAIN VICE PRESIDENT Office Visit [facility] Heart [facility] V[facility] At [facility] [address] [place] [address] Víctor Fernandez MD [address] [place] [address] documented as of this encounter Visit Diagnoses Not on filedocumented in this encounter
--- OUTSIDE RECORDS SUMMARY | 2025-07-06 03:33 | XMS_ITS | Encounter Summary ---
Author Organization [facility] Address [address] [place] [address] Care Team Providers Care Screen Tender Name Role Phone Unavailable Primary Care Provider Unavailabl e Encounter Details Date Type Department Care Team (Late st Contact Info) Description 06/14/2025 Results Follow-Up [facility] Vascular At [address] [place] [phone] Jo-Ann Hitchcock RN CBC WITH DIFFERENTIAL, BASIC METABOLIC PANEL, PROTIME-INR Social History Tobacco Use Types Packs/Day Years Used Date Smoking Tobacco: Never Smokeless Tobacco: Never Sex and Gender Information Value Date Recorded Sex Assigned at Male 05/09/2025 2:54 PM CDT Legal Sex Male 4:21 PM CDT Gender Identity Male 05/09/2025 2:54 PM CDT Sexual Orientation Straight 05/09/2025 2: 54 PM CDT documented as of this encounter Plan of Treatment Upcoming Encounters Date Type Department Care Team (Late st Contact Info) Description 08/07/2025 11:15 AM CDT Office Visit [facility] HEART AND VASCULAR EP AT [address] [place] [phone] Dalila Salas NP [address] [place] [address] [address] [place] [address] 10/16/2025 8:00 AM SAS DEVELOPER ANALYST Office Visit [facility] AND VASCULAR EP AT [address] [place] [phone] Dalila Salas NP [address] [place] [address] [address] [place] [address] 11/16/2025 11:30 AM SAS DEVELOPER ANALYST Office Visit [facility] Heart [facility] Vascular At [facility] [address] [place] [address] Víctor Fernandez MD [address] [facility] [address] [place] [address] documented as of this encounter Visit Diagnoses Not on filedocumented in this encounter
--- NOTE | 2025-07-06 06:31 | WPDHPUPDATE1 ---
History and Physical Update Update Date/Time: 07/06/25 06:31 History and Physical has been reviewed, including an updated exam of the patient. There are NO changes in the patient's condition. Risks, benefits, and alternatives have been discussed and questions answered. Patient agrees to proceed with procedure.
[2025-07-06] MEDS: LACTATED RINGERS 1,000 ML 30 ML IV CONT (07:15)
--- NOTE | 2025-07-06 08:13 | P.PNAN_ITS ---
Anes - Initial Pre Proc Eval Procedure: Operation Date: 07/06/25 08:30 Proposed Procedures p Cystoscopy, Left Ureteroscopy, Possible Left Retrograde Pyelogram, Possible Left Stone Extraction, Possible Left Stent Placement, Possible Holmium Laser - Víctor Zamorano MD Date/Time: 07/06/25 08:13 Surgeon: Víctor Zamorano MD Pre Op Diagnosis: left ureteral stone Patient Data Age: 59 Gender: M Height: 1.73 m Weight: 105 kg Allergies Allergy/AdvReac Type Severity Reaction Status Date / Time aspirin Allergy Intermediate Palpitation Verified 07/06/25 07:34 s Home Medications ?Medication ?Instructions ?Recorded ?Confirmed ?Type amiodarone 200 mg tablet 200 mg PO DAILY 07/04/25 07/06/25 History apixaban 5 mg tablet (Eliquis) 5 mg PO BID 07/04/25 07/04/25 History losartan 25 mg tablet 25 mg PO DAILY 07/04/25 07/04/25 History metoprolol tartrate 25 mg tablet 25 mg PO DAILY 07/04/25 07/06/25 History spironolactone 25 mg tablet 25 mg PO DAILY 07/04/25 07/04/25 History (Aldactone) tamsulosin 0.4 mg capsule 0.4 mg PO DAILY 07/04/25 07/04/25 History Patient hx anesthesia problems: none Family hx anesthesia problems: none Results Review: All pre-operative results and documents have been reviewed as part of the pre- operative evaluation. [facility] Social History Social History Tobacco type: cigars Additional smoking assessment comments: Occasional when golfing. Living arrangements: with family Spiritual care concerns: No Anes - Eval Final PreProcedure Day of Procedure 07/06/25 08:13 Patient weight: obese Heart: irregular rhythm Lungs: clear to auscultation Airway: Mallampati scale class II Neurological: alert and oriented Last oral intake: >/= 8 hours ASA classification: III Emergent: no Anesthetic plan: proceed Anesthesia type and monitoring: general LMA and standard monitoring Results Review: All pre-operative results and documents have been reviewed as part of the pre- operative evaluation. Informed Consent: The patient's anesthetic plan and its attendant risks and benefits were discussed with the patient/family/POA. Questions were solicited and answers provided to the satisfaction of the patient/family/POA.
[2025-07-06] MEDS: ceFAZolin 2 GM in SODIUM CHLORIDE 0.9% IV 50 ML 100 ML IVPB (08:19)
[2025-07-06] MEDS: LIDOCAINE 2% GEL UROJET 10 ML PKG MUCOUS MEM (08:39)
--- NOTE | 2025-07-06 08:47 | P.OP_ITS ---
Procedure Note - Detailed Date of Procedure 07/06/25 Pre-op Diagnosis Left ureteral stone Post-op Diagnosis Same Procedure Performed Cystoscopy, left ureteroscopy with stone extraction Surgeon Víctor Zamorano MD Anesthesia General Description of Procedure The patient was brought to the operative suite where he is prepped and draped in a routine sterile fashion while in the dorsal lithotomy position after the uneventful induction of a general LMA anesthetic. A 19F rigid cystoscope was placed in the bladder. There are no urethral strictures. His prostatic urethra measures, approximately, 1.5cm with no median lobe enlargement. The bladder mucosa was endoscopically normal without hyperemia or neoplasm. There was a single, orthotopic ureteral orifice bilaterally. A 0.035 glidewire was advanced into the left renal pelvis under fluoroscopy. The distal ureter was dilated with an 8F/10F ureteral dilator. Ureteroscopy was undertaken with a short, tapered, semi-rigid ureteroscope and the stone was extracted with ease using a 1.9F Escape disposable stone basket. Due to the ease of this manipulati on I opted not to place a ureteral stent. The patient's bladder was emptied and was taken to the recovery room having tolerated this procedure well. Drains No Packing No Pathology Yes Complications No immediate complications
[2025-07-06] MEDS: KETOROLAC 30 MG/ML VIAL (*BKC) IV PUSH (08:48)
[2025-07-06] MEDS: oxyCODONE HCL (*CRX) 5 MG TAB IR PO (10:20)
--- NOTE | 2025-07-06 10:39 | S_PTH ---
PATIENT: Chris Ramos LOC: [facility] U#:[id number] AGE/SX: 59/M ROOM: RE07/06/[address]: Víctor Zamorano MD : 1965 BED: DIS: 07/06/2025 SPEC #: [id number] RECD: 07/06/25 11:36 STATUS: GINNA REQ #: [id number] SHIRA: 07/06/25 10:[address]: Víctor Zamorano DEPT: [facility] Surgical RECD BY: Shira Lott Tissues: A - Stone Procedures: Gross Exam Level 1 Crystalline Analysis
== END 2025-07-06 11:10 | disposition home or self-care (01) ==
PROVIDERS: Visit Provider Urology
PROC: (CPT 52352; principal; 2025-07-06 08:30)
DX: N20.1 Calculus of ureter (principal); Z72.0 Tobacco use; E66.9 Obesity, unspecified; Z68.35 Body mass index [BMI] 35.0-35.9, adult
CPT/HCPCS: 52352; 82365; 88300; 99199; J0690; A9270; C1769; J1100; J1885; J2003; J2250; J2371; J2405; J2704; J3010; J7120